=== PATIENT | female | born 1970 | race African-American/Black ===

== ENCOUNTER 2018-11-16 22:22 | Inpatient (IN) | payer MEDICAID ==
[~2018-11-16] VITALS: Ht 165.1 cm; Wt 150.0 kg
[~2018-11-16 22:22] MED LIST: ALBU8.5H4 IH; ALD25T PO; ARIP10TA15 PO; ASPI81TA52 PO; CARV-50 PO; DES150T PO; DEXL30CA3 PO; DOCU100C37 PO; FERR325T28 PO; FURO40TA4 PO; HYDR-4069 PO; ISOS20TA8 PO; LANTUS SQ; LORA-512 PO; LORA1TAB PO; LOXA50CA PO; OMEP-84 PO; OXCA300T4 PO; POTA8CAP9 PO; PRAV40TA65 PO; TOP100T PO; TRAM50TA2 PO; VITC500T PO; ZES10T PO; ZOL50T PO
[2018-11-16 22:55] LABS: BASOPHILS # (AUTO) 0.1 X10'3 (0-0.2); BASOPHILS % (AUTO) 0.9 % (0-1); EOSINOPHILS # (AUTO) 0.2 X10'3 (0-0.9); EOSINOPHILS % (AUTO) 1.7 % (0-6); HEMOGLOBIN 13.1 g/dl (12.0-16.0); LYMPHOCYTES % (AUTO) 32.4 % (21-51); MEAN CORPUSCULAR HEMOGLOBIN 27.9 PG (27.0-31.0); MEAN CORPUSCULAR HGB CONC 32.7 g/dL (33.0-36.5); MEAN CORPUSCULAR VOLUME 85.1 FL (78-98); MEAN PLATELET VOLUME 8.7 FL (7.4-10.4); MONOCYTES # (AUTO) 0.7 X10'3 (0-0.9); MONOCYTES % (AUTO) 7.1 % (2-12); NEUTROPHILS # (AUTO) 5.4 X10'3 (1.8-7.7); NEUTROPHILS % (AUTO) 57.9 % (42-75); PLATELET COUNT 229 X10'3 (140-440); RED CELL DISTRIBUTION WIDTH 15.2 % (11.5-14.5); WHITE BLOOD COUNT 9.3 X10'3 (4.5-11.0)
[2018-11-16 23:05] LABS: ALANINE AMINOTRANSFERASE 28 U/L (12-78); ALBUMIN/GLOBULIN RATIO 0.8 (1.1-1.5); ALKALINE PHOSPHATASE 103 IU/L (46-116); ANION GAP 8 (8-16); ASPARTATE AMINO TRANSFERASE 10 U/L (10-37); BILIRUBIN,TOTAL 0.3 MG/DL (0.1-1.0); BLOOD UREA NITROGEN 15 MG/DL (7-18); BUN/CREATININE RATIO 11.2 (6.6-38.0); CHLORIDE 99 MMOL/L (99-107); CREATININE 1.34 MG/DL (0.40-0.90); PARTIAL THROMBOPLASTIN TIME 27 SECONDS (22-32); POTASSIUM 4.3 MMOL/L (3.5-5.1); SODIUM 132 MMOL/L (135-145); TOTAL CARBON DIOXIDE 25.4 MMOL/L (24-32); eGFR 51 ML/MIN
[2018-11-16 23:08] LABS: GLUCOSE 493 MG/DL (70-104)
[2018-11-16] MEDS ORDERED: aspirin 325mg tablet PO ONE (23:25)
[2018-11-16] MEDS ORDERED: normal saline 1000ml 1,000 ML IV ONE (23:30)
[2018-11-16] MEDS ORDERED: iohexol 350MG/ML 100ml bottle IV ONE (23:38)
[2018-11-17] MEDS ORDERED: insulin regular, human 10 units/0.1 ml syringe IV ONE (00:10)
[2018-11-17] MEDS ORDERED: dicyclomine 10 MG capsule PO ONE (01:05)
[2018-11-17] MEDS ORDERED: heparin 25,000 UNIT/250ml bag 250 ML IV SCH ×2 (01:33→01:47)
[2018-11-17] MEDS ORDERED: heparin 10,000 units/1 ML INJ IV ONE (01:35)
[2018-11-17] MEDS ORDERED: heparin 10,000 units/1 ML INJ IV PRN (01:35)
[2018-11-17] MEDS ORDERED: potassium Cl 40MEQ/NS 500ml 500 ML IV PRN ×2 (01:40)
[2018-11-17] MEDS ORDERED: glucagon, human recombinant 1mg kit SUBCUT PRN (01:40)
[2018-11-17] MEDS ORDERED: magnesium Cl slow-release 64mg tablet PO PRN (01:40)
[2018-11-17] MEDS ORDERED: dextrose ORAL solution 15 GM/59 ML bottle PO PRN ×2 (01:40)
[2018-11-17] MEDS ORDERED: HYDROcodone/acetaminophen 10/325mg tab PO PRN (01:40)
[2018-11-17] MEDS ORDERED: magnesium 2GM in 50ml NS 50 ML IV PRN (01:40)
[2018-11-17] MEDS ORDERED: docusate sod 100mg capsule PO PRN (01:40)
[2018-11-17] MEDS ORDERED: ondansetron/PF 4mg/2ml inj IV PRN (01:40)
[2018-11-17] MEDS ORDERED: mag hydrox/Alum hydrox/simeth 30ml oral suspension PO PRN (01:40)
[2018-11-17] MEDS ORDERED: acetaminophen 325mg tablet PO PRN ×2 (01:40)
[2018-11-17] MEDS ORDERED: potassium Cl 20 mEq SR tablet PO PRN ×2 (01:40)
[2018-11-17] MEDS ORDERED: dextrose 50%-water 50ml dispensing syringe IV PRN ×2 (01:40)
[2018-11-17] MEDS ORDERED: MESSAGE TO PHARMACY PO ONE (01:40)
[2018-11-17] MEDS ORDERED: HYDROcodone/acetaminophen 5mg/325mg tablet PO PRN (01:40)
[2018-11-17] MEDS ORDERED: magnesium 4gm in 100ml NS 100 ML IV PRN (01:40)
[2018-11-17] MEDS ORDERED: LORATADINE 10 MG PO PRN (02:05)
[2018-11-17] MEDS ORDERED: ipratropium/albuterol 3ml nebule ONE (02:06)
[2018-11-17 02:14] LABS: HEMOGLOBIN A1C 12.2 % (4.5-6.2)
[2018-11-17] MEDS ORDERED: loratadine 10mg tablet PO PRN (02:20)
--- NOTE | 2018-11-17 03:05 | NUR ---
Received report from Tricia PROCTOR from ED. Patient transported via gurney. Patient able to stand and get into bed. Bed locked and low. Call light placed within reach. Heparin gtt running per orders
[2018-11-17 03:15] VITALS: BP 138/89
[2018-11-17 05:30] LABS: BASOPHILS # (AUTO) 0.1 X10'3 (0-0.2); BASOPHILS % (AUTO) 0.8 % (0-1); EOSINOPHILS # (AUTO) 0.2 X10'3 (0-0.9); HEMATOCRIT 39.7 % (35.0-45.0); HEMOGLOBIN 13.3 g/dl (12.0-16.0); LYMPHOCYTES # (AUTO) 3.6 X10'3 (1.1-4.8); LYMPHOCYTES % (AUTO) 42.8 % (21-51); MEAN CORPUSCULAR HEMOGLOBIN 28.4 PG (27.0-31.0); MEAN CORPUSCULAR HGB CONC 33.4 g/dL (33.0-36.5); MEAN PLATELET VOLUME 8.7 FL (7.4-10.4); MONOCYTES # (AUTO) 0.6 X10'3 (0-0.9); MONOCYTES % (AUTO) 6.9 % (2-12); NEUTROPHILS % (AUTO) 47.5 % (42-75); PLATELET COUNT 240 X10'3 (140-440); RED BLOOD COUNT 4.67 X10'6 (4.20-5.60); RED CELL DISTRIBUTION WIDTH 15.3 % (11.5-14.5); WHITE BLOOD COUNT 8.5 X10'3 (4.5-11.0)
[2018-11-17 05:40] LABS: ALANINE AMINOTRANSFERASE 28 U/L (12-78); ALBUMIN 3.1 G/DL (3.4-5.0); ALBUMIN/GLOBULIN RATIO 0.8 (1.1-1.5); ALKALINE PHOSPHATASE 96 IU/L (46-116); ANION GAP 9 (8-16); ASPARTATE AMINO TRANSFERASE 12 U/L (10-37); BILIRUBIN,TOTAL 0.2 MG/DL (0.1-1.0); BLOOD UREA NITROGEN 13 MG/DL (7-18); BUN/CREATININE RATIO 11.6 (6.6-38.0); CALCIUM 8.6 MG/DL (8.5-10.1); CHLORIDE 100 MMOL/L (99-107); CREATININE 1.12 MG/DL (0.40-0.90); GLUCOSE 333 MG/DL (70-104); POTASSIUM 3.7 MMOL/L (3.5-5.1); SODIUM 134 MMOL/L (135-145); TOTAL CARBON DIOXIDE 25.4 MMOL/L (24-32); TOTAL PROTEIN 7.1 G/DL (6.4-8.2); eGFR 63 ML/MIN
[2018-11-17 05:43] LABS: CHOL/HDL RATIO 4.6 (0.00-4.99); CHOLESTEROL 201 MG/DL (0-200); HDL CHOLESTEROL 44 MG/DL (35-60); LDL CHOLESTEROL 123 MG/DL (50-100); TRIGLYCERIDES 216 MG/DL (20-135)
[2018-11-17 06:00] VITALS: BP 134/83
--- NOTE | 2018-11-17 06:31 | NUR ---
Problems reprioritized. Patient report given, questions answered & plan of care reviewed with Tova PROCTOR.
--- NOTE | 2018-11-17 06:33 | NUR ---
Patient in room [facility] 4009. I have received report from Charmaine PROCTOR and had the opportunity to ask questions and assume patient care.
[2018-11-17] MEDS: ipratropium/albuterol 3ml nebule NEB PRN ×2 (07:46→14:46)
[2018-11-17] MEDS ORDERED: ARIPIPRAZOLE 10 MG PO SCH (08:00)
[2018-11-17] MEDS ORDERED: enoxaparin 40mg/0.4ml syringe SQ SCH (08:00)
[2018-11-17] MEDS ORDERED: docusate sodium 100mg/10ml UD cup PO SCH (08:00)
[2018-11-17] MEDS ORDERED: furosemide 40mg tablet PO SCH (08:00)
[2018-11-17] MEDS: K and/or MAG REPLACEMENT MC SCH (08:00)
[2018-11-17] MEDS: insulin Lispro (HumaLOG) vial - multi-dose SQ SCH ×4 (08:06→20:50)
[2018-11-17] MEDS: aripiprazole 5mg tablet PO SCH (08:16)
[2018-11-17] MEDS: sertraline 50mg tablet PO SCH (08:16)
[2018-11-17] MEDS: ferrous sulfate 325mg tablet PO SCH ×2 (08:16→20:45)
[2018-11-17] MEDS: aspirin 81mg tablet.DR PO SCH (08:16)
[2018-11-17] MEDS: oxcarbazepine 150mg tablet PO SCH ×2 (08:17→20:45)
[2018-11-17] MEDS: lisinopril 10 MG tablet PO SCH ×2 (08:18→20:45)
[2018-11-17] MEDS: pravastatin 40mg tablet PO SCH (08:18)
[2018-11-17] MEDS ORDERED: insulin glargine (Lantus) pen - multi-dose SQ SCH ×3 (08:49→21:00)
[2018-11-17 10:00] VITALS: BP 142/87
[2018-11-17] MEDS: pantoprazole 40mg Tablet.DR PO SCH (10:34)
[2018-11-17] MEDS: prednisone 10mg tablet PO SCH (10:35)
[2018-11-17] MEDS: carVEDilol 12.5mg tablet PO SCH ×2 (10:35→20:44)
[2018-11-17 11:50] LABS: CLARITY,URINE CLEAR (Clear); COLOR,URINE STRAW (Yellow); GLUCOSE, URINE >=1000 mg/dl (Neg); KETONES,URINE NEGATIVE (Neg); LEUKOCYTE ESTERASE ,URINE NEGATIVE (Neg); NITRITES, URINE NEGATIVE (Neg); OCCULT BLOOD,URINE TRACE-INTACT (Neg); PROTEIN,URINE NEGATIVE (Neg); UROBILINOGEN,URINE 0.2 E.U/dL (0.2-1.0)
[2018-11-17 11:51] LABS: UA COLLECTION TYPE CLN CATCH MIDSTREAM
[2018-11-17 11:59] LABS: BACTERIA,URINE FEW /HPF (Neg); RBC,URINE 0-2 /HPF (0-2); SQUAMOUS EPITHELIAL CELL,UR FEW /LPF (FEW); WBC,URINE 0-4 /HPF (0-4)
[2018-11-17 12:01] LABS: URINE AMPHETAMINE SCREEN NEGATIVE (Neg); URINE BARBITUATE SCREEN NEGATIVE (Neg); URINE BENZODIAZEPINES SCREEN NEGATIVE (Neg); URINE CANNABINOID SCREEN NEGATIVE (Neg); URINE COCAINE SCREEN NEGATIVE (Neg); URINE METHADONE SCREEN NEGATIVE (Neg); URINE OPIATE SCREEN NEGATIVE (Neg); URINE PHENCYCLIDINE SCREEN NEGATIVE (Neg)
--- NOTE | 2018-11-17 13:17 | NUR ---
DM consult: Pt with A1c 12.2 seen at bedside. Pt reports she doesn't see an MD for DM management or check her BG levels d/t her glucometer breaking within the last week or two. Pt reports previous BG levels were in the 500s. Pt states her rx for insulin is 50 units HS however she only takes 25 units because she is worried about giving herself too much insulin without knowing what her BG levels are. business services vice president have already been consulted d/t patient's social situation. Written and verbal DM ed with referral to outpatient DM class provided to patient. All of patient's questions were answered at this time. RD contact information provided, will remain available. Malnutrition consult: Pt reports UBW of 331#, current documented wt is 330# using gurney scale. Pt reports that she feels like she lost weight despite reporting wt gain from 221# to 330#. Pt currently on heart healthy CHO controlled diet with documented 100% PO intake and requesting more food d/t good appetite. Pt agreeable to double protein TID and cottage cheese with fruit at dinner, d/w dietary. Pt with no visible fat or muscle wasting. Pt currently does not meet criteria for malnutrition. Pt admit with SOB and COPD exacerbation. Pt denies any food allergies. LBM 11/16. Will continue to follow. Recommendations: 1) Continue with heart healthy CHO controlled diet 2) Double protein TID; cottage cheese with fruit at dinner 3) Monitor need for additional verbal DM ed 4) Monitor renal labs 5) Wt per rx Addendum: 11/17/18 at [address] Amended: Links added.
--- NOTE | 2018-11-17 13:30 | NUR ---
Per Dr. Hale; we are to bump patients correctional level to a 4 and continue to increase level as per protocol.
--- NOTE | 2018-11-17 15:19 | NUR ---
Ambulated patient 150 ft while measuring SPO2%, Patients O2 Saturations stayed above 95% while walking.
--- NOTE | 2018-11-17 15:26 | NUR ---
PAGER ID: [phone] MESSAGE: [id number]. Batsheva Kinney. Walked patient, her O2 stayed 95% and above while walking. Blood sugars still high, at lunch 387. Tova 1992
--- NOTE | 2018-11-17 16:31 | NUR ---
PAGER ID: [phone] MESSAGE: [id number] Batsheva Kinney. Carotid US result in paper chart. Result shows Left carotid decreased flow bilateral suggesting distal stenosis. Tova 4105
[2018-11-17] MEDS: potassium cl 20mEq in 1/2 NS 1,000 ML IV SCH (17:56)
[2018-11-17 18:00] VITALS: BP 122/79
--- NOTE | 2018-11-17 18:18 | NUR ---
Problems reprioritized. Patient report given, questions answered & plan of care reviewed with Charmaine PROCTOR.
--- NOTE | 2018-11-17 18:19 | NUR ---
Patient in room [facility] 4009. I have received report from Tova PROCTOR and had the opportunity to ask questions and assume patient care.
[2018-11-17] MEDS: docusate sod 100mg capsule PO SCH (20:44)
[2018-11-17] MEDS: heparin, porcine 5000 units/ml vial SQ SCH (20:45)
[2018-11-17] MEDS: traZODone 150mg tablet PO SCH (20:46)
--- NOTE | 2018-11-17 20:59 | NUR ---
Patient falling asleep while talking to me and doing my assessment. Vitals stable.
[2018-11-17 21:00] VITALS: BP 109/70
[2018-11-17] MEDS ORDERED: LORazepam 1 MG tablet PO SCH (21:00)
[2018-11-17 22:00] VITALS: BP_SYST 108; BP_SYST 114; BP_DIAS 54; BP_DIAS 67
[2018-11-18] MEDS: ipratropium/albuterol 3ml nebule NEB PRN ×4 (02:16→19:22)
[2018-11-18] MEDS: potassium cl 20mEq in 1/2 NS 1,000 ML IV SCH (04:53)
[2018-11-18 06:00] VITALS: BP 115/72
--- NOTE | 2018-11-18 06:00 | NUR ---
Patient in room [facility]009. I have received report from ADOLPH PROCTOR and had the opportunity to ask questions and assume patient care.
--- NOTE | 2018-11-18 06:12 | NUR ---
Problems reprioritized. Patient report given, questions answered & plan of care reviewed with Michelle PROCTOR.
[2018-11-18 07:09] LABS: ALANINE AMINOTRANSFERASE 23 U/L (12-78); ALBUMIN 2.8 G/DL (3.4-5.0); ALBUMIN/GLOBULIN RATIO 0.7 (1.1-1.5); ALKALINE PHOSPHATASE 69 IU/L (46-116); ANION GAP 5 (8-16); ASPARTATE AMINO TRANSFERASE 9 U/L (10-37); BILIRUBIN,TOTAL 0.3 MG/DL (0.1-1.0); BLOOD UREA NITROGEN 26 MG/DL (7-18); BUN/CREATININE RATIO 26.8 (6.6-38.0); CHLORIDE 103 MMOL/L (99-107); CREATININE 0.97 MG/DL (0.40-0.90); GLUCOSE 311 MG/DL (70-104); MAGNESIUM 1.6 MG/DL (1.5-2.4); POTASSIUM 4.4 MMOL/L (3.5-5.1); SODIUM 135 MMOL/L (135-145); TOTAL CARBON DIOXIDE 26.6 MMOL/L (24-32); TOTAL PROTEIN 6.6 G/DL (6.4-8.2); eGFR 74 ML/MIN
[2018-11-18] MEDS: insulin Lispro (HumaLOG) vial - multi-dose SQ SCH ×3 (07:53→18:44)
[2018-11-18] MEDS: heparin, porcine 5000 units/ml vial SQ SCH ×2 (07:55→20:11)
[2018-11-18] MEDS ORDERED: insulin glargine (Lantus) pen - multi-dose SQ SCH (08:00)
[2018-11-18] MEDS: K and/or MAG REPLACEMENT MC SCH (08:00)
[2018-11-18] MEDS ORDERED: iohexol 350MG/ML 100ml bottle IV ONE ×2 (09:00→09:22)
[2018-11-18 10:00] VITALS: BP 91/69
[2018-11-18] MEDS: aspirin 81mg tablet.DR PO SCH (10:58)
[2018-11-18] MEDS: pantoprazole 40mg Tablet.DR PO SCH (10:58)
[2018-11-18] MEDS: aripiprazole 5mg tablet PO SCH (10:58)
[2018-11-18] MEDS: docusate sod 100mg capsule PO SCH ×2 (10:58→20:10)
[2018-11-18] MEDS: sertraline 50mg tablet PO SCH (10:59)
[2018-11-18] MEDS: ferrous sulfate 325mg tablet PO SCH ×2 (10:59→20:10)
[2018-11-18] MEDS: pravastatin 40mg tablet PO SCH (10:59)
[2018-11-18] MEDS: oxcarbazepine 150mg tablet PO SCH ×2 (10:59→20:10)
[2018-11-18] MEDS: prednisone 10mg tablet PO SCH (10:59)
[2018-11-18] MEDS: lisinopril 10 MG tablet PO SCH (11:00)
[2018-11-18] MEDS: carVEDilol 12.5mg tablet PO SCH (11:00)
--- NOTE | 2018-11-18 11:12 | NUR ---
Received TC from bedside RN who states pt is requesting more food at meals. Pt currently receiving double protein TID and cottage cheese with fruit at dinner; d/w dietary to send cottage cheese with fruit TID. Will continue to follow. Recommendations: 1) Continue with heart healthy CHO controlled diet 2) Double protein TID; cottage cheese with fruit TID 3) Monitor need for additional verbal DM ed 4) Monitor renal labs 5) Wt per rx Addendum: 11/18/18 at [address] Amended: Links added.
[2018-11-18] MEDS ORDERED: LORazepam 1 MG tablet PO PRN (13:55)
[2018-11-18] MEDS: normal saline 1000ml 1,000 ML IV SCH (14:02)
[2018-11-18 18:00] VITALS: BP 112/59
--- NOTE | 2018-11-18 18:05 | NUR ---
Problems reprioritized. Patient report given, questions answered & plan of care reviewed with ANGELIKA PROCTOR.
[2018-11-18] MEDS ORDERED: atorvastatin 20mg tablet PO SCH ×2 (20:00)
[2018-11-18] MEDS: carvedilol 6.25mg tablet PO SCH (20:10)
[2018-11-18] MEDS: traZODone 150mg tablet PO SCH (20:10)
[2018-11-18] MEDS: insulin glargine (Lantus) pen - multi-dose SQ SCH (21:30)
--- NOTE | 2018-11-18 22:23 | NUR ---
pt states 9.5/10 pain. when back to bed from , Pt states that she needed her cellphone plugged in, and asked for a snack, but never asked RN for pain medication. Pt has hx of methamphetamine abuse, and is now sleeping soundly. RN will continue to monitor pt for s/s of pain. at this time, there is no s/s of pain.
[2018-11-19] MEDS: normal saline 1000ml 1,000 ML IV SCH (01:59)
--- NOTE | 2018-11-19 06:29 | NUR ---
REPORT GIVEN TO ESTHELA VARELA.
[2018-11-19 06:30] LABS: ALANINE AMINOTRANSFERASE 30 U/L (12-78); ALBUMIN 3.1 G/DL (3.4-5.0); ALBUMIN/GLOBULIN RATIO 0.7 (1.1-1.5); ALKALINE PHOSPHATASE 76 IU/L (46-116); ANION GAP 7 (8-16); ASPARTATE AMINO TRANSFERASE 12 U/L (10-37); BILIRUBIN,TOTAL 0.3 MG/DL (0.1-1.0); BLOOD UREA NITROGEN 29 MG/DL (7-18); BUN/CREATININE RATIO 28.2 (6.6-38.0); CALCIUM 9.2 MG/DL (8.5-10.1); CHLORIDE 103 MMOL/L (99-107); CREATININE 1.03 MG/DL (0.40-0.90); GLUCOSE 188 MG/DL (70-104); MAGNESIUM 1.6 MG/DL (1.5-2.4); POTASSIUM 4.5 MMOL/L (3.5-5.1); SODIUM 135 MMOL/L (135-145); TOTAL CARBON DIOXIDE 24.8 MMOL/L (24-32); TOTAL PROTEIN 7.3 G/DL (6.4-8.2); eGFR 69 ML/MIN
[2018-11-19 07:13] VITALS: BP 134/93
[2018-11-19] MEDS: aripiprazole 5mg tablet PO SCH (07:40)
[2018-11-19] MEDS: ferrous sulfate 325mg tablet PO SCH (07:40)
[2018-11-19] MEDS: docusate sod 100mg capsule PO SCH (07:40)
[2018-11-19] MEDS: pantoprazole 40mg Tablet.DR PO SCH (07:40)
[2018-11-19] MEDS: carvedilol 6.25mg tablet PO SCH (07:40)
[2018-11-19] MEDS: oxcarbazepine 150mg tablet PO SCH (07:41)
[2018-11-19] MEDS: sertraline 50mg tablet PO SCH (07:41)
[2018-11-19] MEDS: aspirin 81mg tablet.DR PO SCH (07:41)
[2018-11-19] MEDS: heparin, porcine 5000 units/ml vial SQ SCH (07:42)
[2018-11-19] MEDS: K and/or MAG REPLACEMENT MC SCH (07:42)
[2018-11-19] MEDS: insulin glargine (Lantus) pen - multi-dose SQ SCH (07:45)
[2018-11-19] MEDS ORDERED: lisinopril 10 MG tablet PO SCH (08:00)
[2018-11-19] MEDS ORDERED: prednisone 10mg tablet PO SCH (08:30)
[2018-11-19] MEDS: ipratropium/albuterol 3ml nebule NEB PRN (08:45)
[2018-11-19 09:25] VITALS: BP 129/88
[2018-11-19] MEDS ORDERED: PRED10TA23 PO (09:37)
[2018-11-19] MEDS ORDERED: LANTUS SQ (09:37)
[2018-11-19] MEDS ORDERED: INSU100V11 SQ (09:39)
== END 2018-11-19 11:00 | disposition home or self-care (01) | DRG 190 ==
LOC: ER 22:23 → ORTHO 4S 11-17 03:19
PROVIDERS: ADMIT Family Medicine; ATTEND Internal Medicine
PROC: B32T1ZZ Computerized Tomography (CT Scan) of Left Pulmonary Artery using Low Osmolar Contrast (ICD-10-PCS; principal; 2018-11-17)
PROC: B3201ZZ Computerized Tomography (CT Scan) of Thoracic Aorta using Low Osmolar Contrast (ICD-10-PCS; 2018-11-17)
PROC: B32S1ZZ Computerized Tomography (CT Scan) of Right Pulmonary Artery using Low Osmolar Contrast (ICD-10-PCS; 2018-11-17)
PROC: B3251ZZ Computerized Tomography (CT Scan) of Bilateral Common Carotid Arteries using Low Osmolar Contrast (ICD-10-PCS; 2018-11-18)
PROC: B3281ZZ Computerized Tomography (CT Scan) of Bilateral Internal Carotid Arteries using Low Osmolar Contrast (ICD-10-PCS; 2018-11-18)
DX: I21.4 Non-ST elevation (NSTEMI) myocardial infarction (principal); E11.22 Type 2 diabetes mellitus with diabetic chronic kidney disease; N17.9 Acute kidney failure, unspecified; E11.65 Type 2 diabetes mellitus with hyperglycemia; E11.319 Type 2 diabetes mellitus with unspecified diabetic retinopathy without macular edema; N18.3 Chronic kidney disease, stage 3 (moderate); I42.9 Cardiomyopathy, unspecified; E66.01 Morbid (severe) obesity due to excess calories; I13.0 Hypertensive heart and chronic kidney disease with heart failure and stage 1 through stage 4 chronic kidney disease, or unspecified chronic kidney disease; I50.32 Chronic diastolic (congestive) heart failure; E78.00 Pure hypercholesterolemia, unspecified; E78.5 Hyperlipidemia, unspecified; E86.0 Dehydration; E87.1 Hypo-osmolality and hyponatremia; F31.9 Bipolar disorder, unspecified; F17.210 Nicotine dependence, cigarettes, uncomplicated; G47.33 Obstructive sleep apnea (adult) (pediatric); J44.1 Chronic obstructive pulmonary disease with (acute) exacerbation; H53.9 Unspecified visual disturbance; F41.8 Other specified anxiety disorders; M62.838 Other muscle spasm; G89.29 Other chronic pain; M54.9 Dorsalgia, unspecified; K21.9 Gastro-esophageal reflux disease without esophagitis; Z59.0 Homelessness; Z79.4 Long term (current) use of insulin; Z83.3 Family history of diabetes mellitus; Z86.73 Personal history of transient ischemic attack (TIA), and cerebral infarction without residual deficits; Z91.19 Patient's noncompliance with other medical treatment and regimen; Z79.899 Other long term (current) drug therapy; Z90.49 Acquired absence of other specified parts of digestive tract; Z82.49 Family history of ischemic heart disease and other diseases of the circulatory system; Z68.43 Body mass index [BMI] 50.0-59.9, adult; Z71.51 Drug abuse counseling and surveillance of drug abuser
CPT/HCPCS: 36415; 70450; 70496; 71045; 71275; 80053; 80061; 80305; 80320; 81001; 82948; 83036; 83735; 83880; 84484; 85025; 85610; 85730; 87070; 93005; 93306; 93880; 94640; 94760; 96365; 96375; 97110; 97116; 97162; 97530; 99285; G0378; J1644; J1650; J1815; J7030; J7512; Q9967

== ENCOUNTER 2018-11-20 01:08 | Emergency (ER) | payer MEDICAID ==
[~2018-11-20] VITALS: Ht 165.1 cm; Wt 150.4 kg
[~2018-11-20 01:08] MED LIST changes: -ALD25T PO; -DEXL30CA3 PO; -FURO40TA4 PO; -HYDR-4069 PO; +INSU100V11 SQ; -ISOS20TA8 PO; -POTA8CAP9 PO; +PRED10TA23 PO
[2018-11-20 02:57] VITALS: BP 116/75
== END 2018-11-20 02:59 | disposition home or self-care (01) ==
LOC: ER 01:09
DX: R05 Cough (principal); E11.319 Type 2 diabetes mellitus with unspecified diabetic retinopathy without macular edema; I13.0 Hypertensive heart and chronic kidney disease with heart failure and stage 1 through stage 4 chronic kidney disease, or unspecified chronic kidney disease; E11.22 Type 2 diabetes mellitus with diabetic chronic kidney disease; N18.9 Chronic kidney disease, unspecified; I50.9 Heart failure, unspecified; J44.9 Chronic obstructive pulmonary disease, unspecified; E78.00 Pure hypercholesterolemia, unspecified; K21.9 Gastro-esophageal reflux disease without esophagitis; G89.29 Other chronic pain; Z79.82 Long term (current) use of aspirin; Z79.4 Long term (current) use of insulin; Z86.73 Personal history of transient ischemic attack (TIA), and cerebral infarction without residual deficits; Z79.899 Other long term (current) drug therapy
CPT/HCPCS: 99281; 99283